=== PATIENT | male | born 1975 | race Caucasian/White ===

== ENCOUNTER → 2016-11-20 | Outpatient (CLI) | payer OTHER ==
--- NOTE | 2016-11-20 11:26 | CT ---
CT sinuses 0909 hours History: Follow-up bony structure left maxillary sinus. Technique: Spiral imaging was obtained through the paranasal sinuses reconstructed to 1 mm slice [facility]. Volume rendering was also performed to better visualize osseous detail. Images were also recon structed in sagittal and coronal planes. Dose reduction techniques were utilized. Findings: Comparison to prior CT study from February 05, 2014. The calcified lesion at the floor of the left maxillary sinus is once again identified and stable in appearance measuring 17 mm in diameter. The cortex is well demarcated. No additional masses are seen associated with the paranasal sinus. There is no mucosal thickening, air-fluid levels, or sinus expan fabrice. The ostiomeatal complexes widely patent bilaterally. There are no ectopic air cells seen about the paranasal sinuses. The nasal turbinates are normal in appearance. There is mild rightward deviati on of the anterior osseous nasal septum and leftward deviation of the mid to posterior osseous nasal septum. The mastoid air cells are clear. Mild narrowing is seen involving the right TMJ with mild sub chondral cystic change and spurring. Impression: 1. Stable osseous lesion inferior left maxillary sinus as detailed above. While this could represent an osteoma, other possibilities include fibrous dysplasia or bony reactive changes after previous den chapincito procedure. 2. No evidence of paranasal sinus disease.
== END ==
LOC: FIMAGING 08:51
PROVIDERS: ATTEND Otolaryngology
DX: J34.89 Other specified disorders of nose and nasal sinuses (principal)